=== PATIENT | female | born 1970 | race African-American/Black ===

== ENCOUNTER 2020-12-27 08:12 | Inpatient (IN) | payer MEDICAID, OTHER ==
[~2020-12-27] VITALS: Ht 180.3 cm; Wt 136.1 kg
[2020-12-27] MEDS ORDERED: SODIUM CHLORIDE 0.9% 1,000 ML IV ONE (08:30)
[2020-12-27 08:44] LABS: BASOPHILS % 0.8 % (0.0-2.0); EOSINOPHILS % 0.8 % (0.0-5.0); HEMATOCRIT. 41.4 % (36.0-48.0); HEMOGLOBIN. 14.2 g/dL (12.0-16.0); LYMPHOCYTES % 9.9 % (20.0-50.0); MEAN CORPUSCULAR HEMOGLOBIN 30.4 pg (28.0-32.0); MEAN CORPUSCULAR VOLUME 88.7 fL (81.0-99.0); MEAN PLATELET VOLUME 8.3 fl (7.4-10.4); MONOCYTES % 4.2 % (2.0-8.0); NEUTROPHILS % 84.3 % (40.0-76.0); PLATELET 320 x1000/uL (130-400); RED BLOOD CELL COUNT 4.67 mill/uL (4.2-5.4); RED CELL DISTRIBUTION WIDTH 13.5 % (11.6-14.6)
[2020-12-27] MEDS ORDERED: MORPHINE SULFATE 4 MG/ML CPJ (NOT FOR IM USE) IV STA (08:50)
[2020-12-27] MEDS ORDERED: ONDANSETRON HCL 4MG/2ML INJ IV STA (08:50)
[2020-12-27 08:52] LABS: CHLORIDE 109 mEq/L (98-107)
[2020-12-27 08:54] LABS: INR 1.2; PROTHROMBIN TIME 12.4 sec (9.6-11.0)
[2020-12-27 08:56] LABS: ETHANOL BLOOD < 10 mg/dL
[2020-12-27 08:58] LABS: HCG SCREEN NEGATIVE
[2020-12-27 10:01] LABS: CLARITY URINE CLEAR (CLEAR); COLOR URINE YELLOW (YELLOW); KETONES URINE NEGATIVE (NEGATIVE); LEUKOCYTE ESTERASE URINE NEGATIVE (NEGATIVE); NITRITE URINE NEGATIVE (NEGATIVE); OCCULT BLOOD URINE NEGATIVE (NEGATIVE); PROTEIN URINE NEGATIVE (NEGATIVE); UROBILINOGEN URINE 0.2 E.U./dL (0.2-1.0)
[2020-12-27 10:22] LABS: *AMPHETAMINES SCREEN URINE NEGATIVE (NEGATIVE); *BARBITURATES SCREEN URINE NEGATIVE (NEGATIVE); *BENZODIAZEPINES SCREEN URINE NEGATIVE (NEGATIVE); *COCAINE SCREEN URINE NEGATIVE (NEGATIVE); CANNABINOID URINE SCREEN NEGATIVE (NEGATIVE); METHADONE URINE SCREEN NEGATIVE (NEGATIVE); OPIATES URINE SCREEN NEGATIVE (NEGATIVE); PHENCYCLIDINE URINE SCREEN NEGATIVE (NEGATIVE)
[2020-12-27] MEDS ORDERED: PIPERACILLIN/TAZ 3.375G PREMIX 50 ML IV ONE (11:00)
[2020-12-27] MEDS ORDERED: SODIUM CHLORIDE 0.9% 1000ML BAG (SEPSIS BOLUS) IV ONE (11:00)
[2020-12-27] MEDS ORDERED: ONDANSETRON HCL 4MG/2ML INJ IV ONE (11:45)
[2020-12-27] MEDS ORDERED: MORPHINE SULFATE 4 MG/ML CPJ (NOT FOR IM USE) IV ONE (11:45)
[2020-12-27] MEDS ORDERED: CLONIDINE 0.1MG TABLET PO PRN (12:45)
[2020-12-27] MEDS ORDERED: IPRATROPIUM/ALBUTEROL 0.5-3(2.5)MG/3ML NEB HHN PRN (12:45)
[2020-12-27] MEDS ORDERED: DOCUSATE SODIUM 100MG CAPSULE PO PRN (12:45)
[2020-12-27] MEDS ORDERED: ONDANSETRON HCL 4MG/2ML INJ IV PRN (12:45)
[2020-12-27] MEDS ORDERED: ACETAMINOPHEN 325MG TABLET PO PRN ×2 (12:45)
[2020-12-27] MEDS ORDERED: LORAZEPAM 0.5MG TABLET PO PRN (12:45)
[2020-12-27] MEDS ORDERED: PIPERACILLIN/TAZ 3.375G PREMIX 50 ML IV SCH ×3 (13:00→18:00)
[2020-12-27] MEDS: DEXT 5%/LACTATED RINGERS 1,000 ML IV SCH ×2 (13:45→14:15)
[2020-12-27] MEDS ORDERED: PIPERACILLIN/TAZOBACTAM 3.375 G/VIAL IV SCH (14:00)
[2020-12-27] MEDS: MORPHINE SULFATE 2 MG/ML CPJ (NOT FOR IM USE) IV PRN ×3 (17:06→23:36)
[2020-12-27 22:48] VITALS: BP 154/89
[2020-12-28] VITALS: BP 119/71
[2020-12-28] MEDS: PIPERACILLIN/TAZOBACTAM 3.375 G in DEXT 5% WATER 100 ML IV SCH ×4 (02:21→17:59)
[2020-12-28 04:00] VITALS: BP 150/94
[2020-12-28] MEDS: MORPHINE SULFATE 2 MG/ML CPJ (NOT FOR IM USE) IV PRN ×2 (06:30→12:06)
[2020-12-28] MEDS: DEXT 5%/LACTATED RINGERS 1,000 ML IV SCH ×2 (06:34→16:53)
[2020-12-28 07:00] LABS: CHLORIDE 108 mEq/L (98-107)
[2020-12-28 07:37] LABS: BASOPHILS % 0.6 % (0.0-2.0); EOSINOPHILS % 1.7 % (0.0-5.0); HEMATOCRIT. 37.3 % (36.0-48.0); HEMOGLOBIN. 12.8 g/dL (12.0-16.0); LYMPHOCYTES % 15.4 % (20.0-50.0); MEAN CORPUSCULAR HEMOGLOBIN 30.7 pg (28.0-32.0); MEAN CORPUSCULAR VOLUME 89.4 fL (81.0-99.0); MEAN PLATELET VOLUME 8.4 fl (7.4-10.4); MONOCYTES % 3.6 % (2.0-8.0); NEUTROPHILS % 78.7 % (40.0-76.0); PLATELET 271 x1000/uL (130-400); RED BLOOD CELL COUNT 4.17 mill/uL (4.2-5.4); RED CELL DISTRIBUTION WIDTH 13.5 % (11.6-14.6)
[2020-12-28 08:00] VITALS: BP 136/82
[2020-12-28 12:00] VITALS: BP 128/80
[2020-12-28 16:00] VITALS: BP 130/81
[2020-12-28] MEDS: HYDROCODONE/ACETAMINOPHEN 5/325MG TABLET PO PRN (18:13)
[2020-12-28 20:00] VITALS: BP 134/80
[2020-12-29] VITALS: BP 128/66
[2020-12-29] MEDS: PIPERACILLIN/TAZOBACTAM 3.375 G in DEXT 5% WATER 100 ML IV SCH ×4 (00:39→17:58)
[2020-12-29] MEDS: DEXT 5%/LACTATED RINGERS 1,000 ML IV SCH ×3 (00:39→18:32)
[2020-12-29 04:00] VITALS: BP 136/87
[2020-12-29 06:51] LABS: BASOPHILS % 0.7 % (0.0-2.0); EOSINOPHILS % 2.6 % (0.0-5.0); HEMATOCRIT. 37.8 % (36.0-48.0); HEMOGLOBIN. 12.8 g/dL (12.0-16.0); LYMPHOCYTES % 13.1 % (20.0-50.0); MEAN CORPUSCULAR VOLUME 88.7 fL (81.0-99.0); MEAN PLATELET VOLUME 8.1 fl (7.4-10.4); MONOCYTES % 5.4 % (2.0-8.0); NEUTROPHILS % 78.2 % (40.0-76.0); PLATELET 263 x1000/uL (130-400); RED BLOOD CELL COUNT 4.27 mill/uL (4.2-5.4); RED CELL DISTRIBUTION WIDTH 13.4 % (11.6-14.6)
[2020-12-29] MEDS: OMEPRAZOLE 20MG CAPSULE EXTENDED RELEASE PO SCH (07:02)
[2020-12-29 07:26] LABS: CHLORIDE 108 mEq/L (98-107)
[2020-12-29 08:00] VITALS: BP 125/75
[2020-12-29] MEDS: DOCUSATE SODIUM 100MG CAPSULE PO SCH ×2 (08:26→17:58)
[2020-12-29 12:00] VITALS: BP 125/74
[2020-12-29 16:00] VITALS: BP 128/62
[2020-12-29] MEDS ORDERED: BISACODYL 5MG TABLET PO NR (16:00)
[2020-12-29] MEDS: SIMETHICONE 80MG TABLET CHEW PO SCH ×2 (16:18→21:57)
[2020-12-29] MEDS: HYDROCODONE/ACETAMINOPHEN 5/325MG TABLET PO PRN (16:21)
[2020-12-29 20:00] VITALS: BP 126/68
[2020-12-30] VITALS: BP 135/69
[2020-12-30] MEDS: PIPERACILLIN/TAZOBACTAM 3.375 G in DEXT 5% WATER 100 ML IV SCH ×5 (00:09→23:57)
[2020-12-30] MEDS: DEXT 5%/LACTATED RINGERS 1,000 ML IV SCH ×3 (03:53→22:34)
[2020-12-30] MEDS: SIMETHICONE 80MG TABLET CHEW PO SCH ×4 (03:53→21:28)
[2020-12-30 04:00] VITALS: BP 131/80
[2020-12-30] MEDS: OMEPRAZOLE 20MG CAPSULE EXTENDED RELEASE PO SCH (06:26)
[2020-12-30 07:03] LABS: BASOPHILS % 0.9 % (0.0-2.0); EOSINOPHILS % 2.6 % (0.0-5.0); HEMATOCRIT. 35.6 % (36.0-48.0); HEMOGLOBIN. 12.3 g/dL (12.0-16.0); LYMPHOCYTES % 14.2 % (20.0-50.0); MEAN CORPUSCULAR HEMOGLOBIN 30.7 pg (28.0-32.0); MEAN PLATELET VOLUME 8.3 fl (7.4-10.4); MONOCYTES % 7.9 % (2.0-8.0); NEUTROPHILS % 74.4 % (40.0-76.0); PLATELET 240 x1000/uL (130-400); RED CELL DISTRIBUTION WIDTH 13.2 % (11.6-14.6)
[2020-12-30 07:10] LABS: CHLORIDE 106 mEq/L (98-107)
[2020-12-30 08:17] VITALS: BP 127/72
[2020-12-30] MEDS: DOCUSATE SODIUM 100MG CAPSULE PO SCH ×2 (08:41→17:00)
[2020-12-30 12:00] VITALS: BP 148/91
[2020-12-30 16:00] VITALS: BP 95/45
[2020-12-30 20:00] VITALS: BP 128/85
[2020-12-31] VITALS: BP 117/64
[2020-12-31 04:00] VITALS: BP 116/58
[2020-12-31] MEDS: SIMETHICONE 80MG TABLET CHEW PO SCH ×2 (04:18→11:06)
[2020-12-31] MEDS: PIPERACILLIN/TAZOBACTAM 3.375 G in DEXT 5% WATER 100 ML IV SCH ×2 (06:26→11:06)
[2020-12-31] MEDS: OMEPRAZOLE 20MG CAPSULE EXTENDED RELEASE PO SCH (06:26)
[2020-12-31 06:57] LABS: BASOPHILS % 1.1 % (0.0-2.0); EOSINOPHILS % 3.6 % (0.0-5.0); HEMATOCRIT. 35.4 % (36.0-48.0); HEMOGLOBIN. 12.3 g/dL (12.0-16.0); LYMPHOCYTES % 24.7 % (20.0-50.0); MEAN CORPUSCULAR HEMOGLOBIN 30.6 pg (28.0-32.0); MEAN CORPUSCULAR VOLUME 88.1 fL (81.0-99.0); MEAN PLATELET VOLUME 8.1 fl (7.4-10.4); NEUTROPHILS % 59.6 % (40.0-76.0); PLATELET 280 x1000/uL (130-400); RED BLOOD CELL COUNT 4.02 mill/uL (4.2-5.4); RED CELL DISTRIBUTION WIDTH 13.3 % (11.6-14.6)
[2020-12-31 07:05] LABS: CHLORIDE 107 mEq/L (98-107)
[2020-12-31 08:00] VITALS: BP 123/76
[2020-12-31] MEDS: DOCUSATE SODIUM 100MG CAPSULE PO SCH (08:27)
[2020-12-31] MEDS: DEXT 5%/LACTATED RINGERS 1,000 ML IV SCH (08:30)
[2020-12-31 12:00] VITALS: BP 165/78
[2020-12-31] MEDS ORDERED: METR-167 MT (12:37)
[2020-12-31] MEDS ORDERED: LEVO750T46 MT (12:37)
[2020-12-31 13:00] VITALS: BP_SYST 125; BP_SYST 165; BP_DIAS 73; BP_DIAS 78
[2020-12-31] MEDS ORDERED: NYSTATIN POWDER 15GM TOP SCH (13:00)
[2020-12-31] MEDS: HYDROCODONE/ACETAMINOPHEN 5/325MG TABLET PO PRN (13:36)
== END 2020-12-31 14:40 | disposition home or self-care (01) | DRG 720 ==
LOC: ER 08:12 → 6EST 11:46 → ENRESERV 21:39
PROVIDERS: ADMIT Internal Medicine; ATTEND Internal Medicine
DX: A41.9 Sepsis, unspecified organism (principal); K26.3 Acute duodenal ulcer without hemorrhage or perforation; K42.9 Umbilical hernia without obstruction or gangrene; K44.9 Diaphragmatic hernia without obstruction or gangrene; K29.60 Other gastritis without bleeding; I10 Essential (primary) hypertension; D25.9 Leiomyoma of uterus, unspecified; K57.20 Diverticulitis of large intestine with perforation and abscess without bleeding; E66.01 Morbid (severe) obesity due to excess calories; Z68.41 Body mass index [BMI] 40.0-44.9, adult
CPT/HCPCS: 36415; 74176; 76830; 76856; 80048; 80053; 80305; 80320; 81003; 83605; 83735; 84703; 85025; 93005; 99291; J2270; J2405; J2543; J7030; J7060; G0480